=== PATIENT | female | born 1955 | race Caucasian/White ===

== ENCOUNTER → 2020-04-30 | Outpatient (CLI) | payer BC ==
--- NOTE | 2020-04-30 11:34 | RAD ---
Bilateral Duplex Carotid Ultrasound, 02/06/2021 Comparison: None available Indication: Weakness and S Procedure: Real-time, grayscale, color flow, duplex Doppler and spectral analysis off the carotid art eries is performed and images are obtained . Vertebral arteries were also imaged FINDINGS: There is extensive plaquing in the left internal carotid artery just distal to the bifurcation with c omplete occlusion. There is also mild to moderate plaquing involving the right carotid bulb and proxi mal right internal carotid artery. Peak systolic velocities in cm/sec: Right side: CCA: 96.0 ICA: 97.0 ICA (End Diastolic Velocity): 35.0 ICA/CCA Ratio: 1.01 Left side: CCA: 80.0 ICA: Completely occluded ICA (End Diastolic Velocity): Completely occluded ICA/CCA Ratio: Could not be obtained due to ICA occlusion Vertebral arteries are antegrade. IMPRESSION: 1. 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 2. Mild to moderate atheromatous plaquing at the right carotid bulb and proximal internal carotid art ken. No evidence of flow-limiting stenosis seen. PQRS Compliance Statement - Stenosis calculations for CT, MR and conventional angiography are based u sepideh measurement of the distal ICA diameter in accordance with the NASCET methodology. Stenosis calcu lations for carotid ultrasound studies are derived from validated velocity criteria which are known t o correlate with the NASCET methodology. Electronically signed by: Cyndi Lanier MD (04/30/2020 11:31 AM) [id number]
--- NOTE | 2020-04-30 11:43 | EKG ---
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
[2020-04-30 12:20] LABS: BASO % 1 % (0-3); EOS # 0.1 x10^3/uL (0.0-0.7); EOS % 1 % (0-3); HEMATOCRIT 45.4 % (36.0-47.0); HEMOGLOBIN 14.9 g/dL (12.0-15.5); LYMPH % 22 % (24-48); MEAN CORPUSCULAR HEMOGLOBIN 29 pg (25-35); MEAN CORPUSCULAR HGB CONC 33 g/dL (31-37); MEAN CORPUSCULAR VOLUME 87 fL (79-100); MONO # 0.5 x10^3/uL (0.0-1.1); MONO % 5 % (0-9); NEUT # 6.7 x10^3uL (1.8-7.7); NEUT % 72 % (31-73); PLATELET COUNT 314 x10^3/uL (140-400); RED BLOOD COUNT 5.21 x10^6/uL (3.50-5.40); RED CELL DISTRIBUTION WIDTH 14.6 % (11.5-14.5); WHITE BLOOD COUNT 9.3 x10^3/uL (4.0-11.0)
[2020-04-30 12:42] LABS: ALBUMIN 3.5 g/dL (3.4-5.0); ALBUMIN/GLOBULIN RATIO 0.9 (1.0-1.7); C REACTIVE PROTEIN 2.8 mg/L (0-3.3); CALCIUM 9.1 mg/dL (8.5-10.1); CREATININE 0.6 mg/dL (0.6-1.0); GFR 101.3; TOTAL BILIRUBIN 0.3 mg/dL (0.2-1.0); TOTAL PROTEIN 7.4 g/dL (6.4-8.2)
[2020-05-01 01:11] LABS: HEMOGLOBIN A1C 5.7 % (4.8-5.6)
[2020-05-01 21:20] LABS: FREE T4 1.14 ng/dL (0.76-1.46); THYROID STIM HORMONE (TSH) 1.069 uIU/mL (0.358-3.740)
--- NOTE | 2020-05-11 08:11 | RAD ---
DATE: 04/30/2020 11:24 AM EXAM: MAMMO YADIEL SCREENING BILATERAL HISTORY: Screening COMPARISON: MLO views of the 11/26/2009 bilateral mammogram. Bilateral full field craniocaudal and mediolateral oblique images were obtained using digital technique. This study was interpreted with the benefit of Computerized Aided Detection (CAD). FINDINGS: Breast Density: SCATTERED The breast parenchyma shows scattered fibroglandular densities. Breast parenchyma level B Benign post biopsy changes are present in both breasts with biopsy clips and unchanged from prior. In the right breast, waxing and waning pattern of nodularity is more apparent with some nodules showing internal punctate calcifications. The multiplicity of findings favors a benign etiology such as hyalinization of fibroadenomas. IMPRESSION: No mammographic evidence of malignancy. BI-RADS CATEGORY: 2 BENIGN FINDING(S) RECOMMENDED FOLLOW-UP: 12M 12 MONTH FOLLOW-UP Annual screening mammography is recommended, unless clinically indicated sooner based on symptoms or change in physical exam. PQRS compliance statement: Patient information was entered into a reminder system with a target due date for the next mammogram. Mammography is a sensitive method for finding small breast cancers, but it does not detect them all and is not a substitute for careful clinical examination. A negative mammogram does not negate a clinically suspicious finding and should not result in delay in biopsying a clinically suspicious abnormality. "Our facility is accredited by the [employer] Mammography Program."
== END ==
LOC: US 10:01
PROVIDERS: ATTEND Family Medicine
DX: Z12.31 Encounter for screening mammogram for malignant neoplasm of breast (principal); I10 Essential (primary) hypertension; I65.23 Occlusion and stenosis of bilateral carotid arteries
CPT/HCPCS: 36415; 77063; 77067; 80053; 80061; 83036; 84439; 84443; 85025; 86140; 93005; 93880

== ENCOUNTER 2020-11-19 18:06 | Emergency (ER) | payer BC ==
[~2020-11-19] VITALS: Ht 162.6 cm; Wt 84.5 kg
[2020-11-19 18:20] VITALS: BP 162/72
[2020-11-19] MEDS ORDERED: IBUPROFEN 600 MG TABLET. PO ONE (18:45)
--- NOTE | 2020-11-19 19:26 | RAD ---
Exam: Right hand 3 views INDICATION: Fall TECHNIQUE: Frontal, lateral and oblique views of the right hand Comparisons: None FINDINGS: Bone mineralization is normal. No acute or healed fractures. Soft tissues are unremarkable. Joint spa robby are well-maintained. IMPRESSION: No acute osseous abnormality of the right hand Electronically signed by: Yesenia Devries MD (11/19/2020 7:23 PM) [facility]Z
--- NOTE | 2020-11-19 19:50 | PHYS DOC ---
Past History Past Surgical History: Hysterectomy, Other Additional Past Surgical Histo: Carotid endardarectomy (ETHAN HARRISON APRN) Alcohol Use: Rarely (ETHAN HARRISON APRN) Adult General Chief Complaint Chief Complaint: HAND PROBLEM HPI HPI Patient is a 65-year-old female who presents to the emergency department repo rting right hand pain near her pinky finger after stumbling through a doorway while carrying a box and falling to the floor striking her hand on the floor. Patient denies injury to any other part of her body. Patient denies any other physical complaints or physical concerns. (ETHAN HARRISON APRN) Review of Systems Review of Systems 14 body systems of review of systems have been reviewed. See HPI for pertinent positives and negative responses, otherwise all other systems are negative, nonpertinent or noncontributory. Constitutional: Negative except as outlined in HPI above. Skin: Negative except as outlined in HPI above. Eyes: Negative except as outlined in HPI above. HENT: Negative except as outlined in HPI above. Respiratory: Negative except as outlined in HPI above. Cardiovascular: Negative except as outlined in HPI above. GI: Negative except as outlined in HPI above. : Negative except as outlined in HPI above. Musculoskeletal: Negative except as outlined in HPI above. Integument: Negative except as outlined in HPI above. Neurologic: Negative except as outlined in HPI above. Endocrine: Negative except as outlined in HPI above. Lymphatic: Negative except as outlined in HPI above. Psychiatric: Negative except as outlined in HPI above. (ETHAN HARRISON APRN) Current Medications Current Medications Current Medications Medications (Trade) Dose Ordered Sig/Ginette Start Time Stop Time Status Last Admin Dose Admin Ibuprofen (Motrin) 600 mg 1X ONCE 11/19/20 18:45 11/19/20 18:47 DC 11/19/20 19:01 600 MG (ETHAN HARRISON APRN) Allergies Allergies Allergies Coded Allergies Type Severity Reaction Last Updated Verified iodine Allergy Unknown 11/19/20 Yes (ETHAN HARRISON APRN) Physical Exam Physical Exam Constitutional: Well developed, well nourished, no acute distress, non-toxic appearance. 65-year-old female in no apparent distress. HENT: Normocephalic, atraumatic. Eyes: Conjunctiva normal, no discharge. Neck: Normal range of motion, no stridor. Cardiovascular: No cyanosis appreciated, distal cap refill less than 2 seconds. Lungs & Thorax: Patient is in no respiratory distress, no audible adventitious lung sounds appreciated. Abdomen: Nontender, no abnormalities noted. Skin: Warm, dry, no erythema, no rash. Back: No tenderness, no deformities. Extremities: No tenderness, no cyanosis, no clubbing, ROM intact, no edema. Pain to palpation along fifth metacarpal with bruising on palmar aspect of distal metacarpal skin surfaces, bruising along lateral pinky finger, skin is intact, limited passive range of motion related to pain. Distal cap refill less than 2 seconds. No swelling appreciated. No damage to the nail appreciated. No loss of sensation. Neurologic: Alert and oriented X 3, normal motor function, normal sensory function, no focal deficits noted. Psychologic: Affect normal, judgement normal, mood normal. (ETHAN HARRISON APRN) Current Patient Data Vital Signs Vital Signs Date Time Temp Pulse Resp B/P (MAP) Pulse Ox O2 Delivery O2 Flow Rate FiO2 11/19/20 18:20 98.5 71 16 162/72 98 (ETHAN HARRISON APRN) EKG EKG [] (ETHAN HARRISON APRN) Radiology/Procedures Radiology/Procedures PATIENT: GENO KASPER ACCOUNT: [id number] : 1955 LOCATION: ER AGE: 65 SEX: F EXAM STATUS: REG ER ORD. PHYSICIAN: ETHAN HARRISON APRN REASON: fall PROCEDURE: HAND RIGHT 3V Exam: Right hand 3 views INDICATION: Fall TECHNIQUE: Frontal, lateral and oblique views of the right hand Comparisons: None FINDINGS: Bone mineralization is normal. No acute or healed fractures. Soft tissues are unremarkable. Joint spaces are well-maintained. IMPRESSION: No acute osseous abnormality of the right hand Electronically signed by: Yesenia Devries MD (11/19/2020 7:23 PM) [facility] (ETHAN HARRISON APRN) Heart Score C/O Chest Pain: No Risk Factors: Risk Factors: DM, Current or recent (<one month) smoker, HTN, HLP, family history of CAD, obesity. Risk Scores: Risk Factors: DM, Current or recent (<one month) smoker, HTN, HLP, family his tory of CAD, obesity. (ETHAN HARRISON APRN) Course & Med Decision Making Course & Med Decision Making Pertinent Labs and Imaging studies reviewed. (See chart for details) 65-year-old female, vital signs reviewed, presents emergency department concerning right hand pain after a stumble and fall through a doorway. Physical examination concerning for possible bony injury versus contusion of the right hand. Will order x-ray. Give p.o. 600 mg ibuprofen. X-ray of hand unremarkable, no acute fracture appreciated. Discussed with patient RICE therapy, will apply Iván wrap in the ED today, strict follow-up with primary care for ongoing pain. [id number] Tylenol or Motrin for ongoing pain. Strict return to ER precautions, patient is amenable to ED discharge planning. Discussed with the patient all findings and diagnostic testing as well as the need to follow-up with their primary care provider for further evaluation and treatment or return to the ED if any new or worsening symptoms. Strict return precautions were also discussed at length, the patient voiced understanding and agreement with the discharge planning. The patient was nontoxic in appearance, in no apparent distress, and hemodynamically stable at the time of disposition. (ETHAN HARRISON APRN) Dragon Disclaimer Dragon Disclaimer This electronic medical record was generated, in whole or in part, using a voice recognition dictation system. (ETHAN HARRISON APRN) Departure Departure: Impression: Primary Impression: Contusion of right hand including fingers Disposition: HOME / SELF CARE / HOMELESS Condition: GOOD Referrals: ANGELINA RAMOS (PCP) Patient Instructions: Contusion, Elastic Bandage and RICE Additional Instructions: You were seen today in the emergency department for pain to your right hand after a fall. An x-ray was done today in the emergency department and does not show any concerning fractures or injury. I am diagnosing you with a contusion of your right hand and fingers. Please use the Iván wrap for compression and comfort. As we discussed RICE therapy, rest, ice, compression, elevation, use ice packs 30 minutes on and 30 minutes off for the next 42 to 72 hours while awake. Please follow-up with your primary care provider for ongoing aches and pains. Return to emergency department for worsening symptoms or other concerns. Thank you for visiting our Emergency Department. It was a pleasure taking care of you today in the emergency department and we appreciate you trusting us with your care. If any additional problems come up don't hesitate to return to visit us. Please follow up with your primary care provider so they can plan additional care if needed and know about the problem that you had. If symptoms worsen come back to the Emergency Department. Any concerning symptoms that start such as chest pain, shortness of air, weakness or numbness on one side of the body, running high fevers or any other concerning symptoms return to the ER. You have been tested for or diagnosed with COVID-19. It is an infection caused by a new type of coronavirus. COVID-19 will cause cold-like or mild flu symptoms in most. It can cause more severe symptoms like problems breathing in some. There is no treatment for COVID-19. The body will clear the infection over time. Self-care will help to ease discomfort. Steps to Take: Self-Care Rest as needed. Healthy habits may help you feel better. Steps include: Choose healthy foods including fruits and vegetables. Drink water throughout the day. Get plenty of sleep each night. If you smoke, try to quit. It may ease breathing. Avoid alcohol. Keep Others Healthy The virus can spread to others. Droplets are released every time you sneeze or cough. The droplets can get into the mouth, nose, or eyes of people near you and lead to infection. To lower the chances of spreading COVID-19 to others: Stay at home until your doctor has said it is safe to leave. If you tested positive this will mean staying isolated until both of the following are true: At least 7 days have passed since the start of illness. You are free of fever for at least 72 hours without the use of medicine. During this time: - Avoid public areas, events, or transportation. Do not return to work or school until your doctor has said it is safe to do so. - Call ahead if you need to go to a medical center. Let them know you may have COVID-19. It will help them guide you where to go. They may also ask you to wear a facemask when you come to the office. - If you call for emergency medical services, let them know you may have COVID- 19. While at home: - Try to avoid close contact with others. Stay about 6 feet away. - If possible, spend most of your time in a separate room from others. - Use a face mask if you will be in close contact with others such as sharing a room or vehicle. - Have someone wipe down common surfaces in the home. Use household substation designer every day on areas like doorknobs, counters, or sinks. - Cough or sneeze into a tissue. Throw the tissue away right after use. If a tissue is not available, cough or sneeze into your elbow. - Wash your hands often. Wash them after sneezing or coughing. Use soap and water and wash for at least 20 seconds. Alcohol based hand cell cleaner can be used if soap and water is not available. - Do not prepare food for others. Avoid sharing personal items like forks, spoons, or toothbrushes. - Avoid close contact with pets while you are sick. There is no evidence of the virus passing to pets. This is a safety step until more is known about this virus. Isolation can be frustrating. Social interaction can help. Keep in touch with friends and family through phone and tech options. You can still interact with others in your home, just keep a safe distance of about 6 feet. Follow-up: Your doctors office will check in with you to see if there are any changes in your health. You may be asked to keep track of symptoms to share with them. They will also let you know when you are clear to be in public again. Problems to Look Out For: Contact your doctor if your recovery is not going as you expect. Get emergency care if you have problems such as: - Trouble breathing - Nonstop chest pain or pressure - Changes in awareness, confusion, or problems waking - Lips or face have bluish color - Worsening of symptoms If you think you have an emergency, call for emergency medical services right away. As taken from [facility] Attending Signature Attending Signature I have participated in the care of this patient and I have reviewed and agree with all pertinent clinical information above including history, exam, and recommendations. (CACHORRO TUCKER MD) Problem Qualifiers Primary Impression: Contusion of right hand including fingers Encounter type: initial encounter Qualified Codes: S60.221A - Contusion of right hand, initial encounter; S60.00XA - Contusion of unspecified finger without damage to nail, initial encounter ETHAN HARRISON APRN Nov 19, 2020 19:50 CACHORRO TUCKER MD Nov 23, 2020 08:36
== END 2020-11-19 20:00 | disposition home or self-care (01) ==
LOC: ER 18:06
DX: S60.051A Contusion of right little finger without damage to nail, initial encounter (principal); Z88.8 Allergy status to other drugs, medicaments and biological substances; W01.198A Fall on same level from slipping, tripping and stumbling with subsequent striking against other object, initial encounter; Y93.89 Activity, other specified; Y92.89 Other specified places as the place of occurrence of the external cause; Y99.8 Other external cause status
CPT/HCPCS: 73130; 99283